=== PATIENT | female | born 1980 | race Caucasian/White ===

== ENCOUNTER 2018-10-17 10:40 | Observation (INO) ==
[2018-10-17] MEDS ORDERED: TYLENOL PO PRN (13:04)
[2018-10-17] MEDS ORDERED: SODIUM CHLORIDE 0.9% INJ SCH (13:30)
[2018-10-17 13:54] LABS: BASO# 0.02 X1000 (0.0-0.2); BASO% 0.2 % (0.0-0.8); EOS# 0.05 X1000 (0.0-0.7); EOS% 0.6 % (0.0-10.0); HEMATOCRIT 39.2 % (37.0-47.0); HEMOGLOBIN 13.3 g/dL (12.0-16.0); LYMPH# 2.29 X1000 (1.2-3.4); LYMPH% 27.6 % (20.5-51.1); MCHC 33.9 g/dL (33-37); MCV 88.5 FL (81-99); MONO# 0.43 X1000 (0.11-0.59); MONO% 5.2 % (1.7-9.3); MPV 8.7 FL (7.4-10.4); NEUT# 5.52 X1000 (1.4-6.5); NEUT% 66.4 % (42.2-75.2); PLT 415 X1000 (130-400); RBC 4.43 XMIL (4.2-5.4); RDW 12.3 % (11.5-14.5); WBC 8.31 X1000 (4.8-10.8)
[2018-10-17 13:59] LABS: INR 0.95; PROTIME 13.4 Seconds (11.0-16.0)
[2018-10-17 14:00] LABS: PTT 27.5 Seconds (22.3-41.8)
[2018-10-17 14:05] LABS: AGAP 13; ALB/GLOB RATIO 1.5; ALBUMIN 4.4 g/dL (3.5-5.0); ALKALINE PHOSPHATASE 166 U/L (32-104); BUN 8 mg/dL (8-22); CALCIUM 9.7 mg/dL (8.8-10.2); CHLORIDE 102 mmol/L (98-107); CK PROFILE 43 U/L (24-173); COSMO 273; CREATININE 0.8 mg/dL (0.5-0.9); ESTIMATED GFR > 60; GLUCOSE 81 mg/dL (70-104); GOT 29 U/L (10-30); GPT 61 U/L (10-36); HEMOGLOBIN A1C 5.4 % (4.8-6.0); POTASSIUM 3.9 mmol/L (3.5-5.1); SODIUM 138 mmol/L (136-145); TCO2 23 mmol/L (25-35); TOTAL BILIRUBIN 0.24 mg/dL (0.20-1.00); TOTAL PROTEIN 7.4 g/dL (6.3-8.3)
[2018-10-17 14:20] LABS: C REACTIVE PROT QUANT 25.45 mg/L (0.00-5.00)
[2018-10-17] MEDS: NEXIUM IV SCH (14:52)
[2018-10-17] MEDS: DILAUDID IV PRN ×2 (14:52→19:51)
[2018-10-17] MEDS: ZOFRAN IV PRN ×2 (14:53→19:51)
[2018-10-17] MEDS: NS 1,000 ML IV SCH (14:53)
[2018-10-17 17:10] LABS: URINE SOURCE CLEAN CATCH
[2018-10-17 17:12] LABS: BILIRUBIN URINE NEGATIVE (NEGATIVE); BLOOD URINE NEGATIVE (NEGATIVE); COLOR YELLOW; GLUCOSE URINE NEGATIVE (NEGATIVE); KETONE URINE NEGATIVE (NEGATIVE); LEUKOCYTES URINE NEGATIVE (NEGATIVE); NITRITE URINE NEGATIVE (NEGATIVE); PH URINE 6.5; PROTEIN URINE TRACE mg/dL (NEGATIVE); SP GRAVITY URINE 1.019; TURBIDITY URINE CLEAR (CLEAR); UR EPITHELIAL CELLS <10 /HPF (<10); URINE BACTERIA 1+ /HPF; URINE RBC <10 /HPF (<10); URINE WBC <10 /HPF (<10); UROBILINOGEN URINE NORMAL (NORMAL)
[2018-10-18] MEDS: ZOFRAN IV PRN ×5 (00:01→20:52)
[2018-10-18] MEDS: DILAUDID IV PRN ×5 (00:01→20:52)
[2018-10-18] MEDS: NS 1,000 ML IV SCH ×3 (00:30→20:53)
--- NOTE | 2018-10-18 01:09 | HISTORY AND PHYSICAL ---
CHIEF COMPLAINT: One week of nausea, vomiting, and persistent abdominal pain. HISTORY OF PRESENT ILLNESS: Ms. Carlson is a 38-year-old female with a history of migraines and depression, who was directly admitted from her primary care provider's office with a chief complaint of persistent abdominal pain as well as nausea and vomiting. The patient reports that last Saturday she started experiencing persistent nausea, vomiting, and abdominal pain. The patient saw her primary care provider last week and was diagnosed with a urinary tract infection and was given a prescription for ciprofloxacin 10 day supply as well as Pyridium. The patient took the antibiotics as prescribed, however, her abdominal pain continued. The patient then presented to her primary care physician today and was told that she needed to be directly admitted to the hospital for further workup for her persistent nausea, vomiting, and abdominal pain. The patient states that nothing like this has happened before. She denies having any blood in her stools or hematemesis. The patient describes the abdominal pain as constant. She rates it at a 10/10 when it is at its worst. She also reports that whenever she tries to eat or drink anything she ends up vomiting. She denies any fever, chills, or recent syncopal episodes. She also denies having any sick contacts. Nobody else in her household has been sick. PAST MEDICAL HISTORY: 1. Migraines. 2. Morbid obesity. 3. Depression. 4. Vitamin D deficiency. PAST SURGICAL HISTORY: 1. Partial hysterectomy. 2. Tubal ligation. 3. D and C. 4. Cholecystectomy. FAMILY HISTORY: The patient's mother had hypertension and rectal cancer. The patient's father had diabetes mellitus. The patient's paternal grandfather had pancreatic cancer. SOCIAL HISTORY: The patient denies any tobacco, alcohol or illicit drug use. ALLERGIES: 1. Sulfa drugs. 2. Flagyl. 3. Albuterol. 4. Tramadol. HOME MEDICATIONS: The patient's home medication list is currently unavailable. REVIEW OF SYSTEMS: A 12-point review of systems has been performed. Please refer to the history of present illness for pertinent positives and negatives. PHYSICAL EXAMINATION: VITAL SIGNS: Temperature 97.7 degrees, blood pressure 112/62, heart rate 96, respirations 14, O2 saturation 99% on room air. GENERAL: This is a morbidly obese female lying in bed in no acute distress. HEART: S1, S2 normal. Regular rate and rhythm. LUNGS: Equal air entry bilaterally. No crackles. No wheezing. No rales. ABDOMEN: Positive bowel sounds. Soft. Diffuse tenderness. EXTREMITIES: No edema. No cyanosis. No calf tenderness. NEUROLOGIC: The patient is alert and oriented x4. No focal neurologic deficits noted. Cranial nerves 2 through 12 intact. LABS: Hemoglobin 13, hematocrit 39, platelets 415,000, white blood cell count 8.3. Sodium 138, potassium 3.9, chloride 102, CO2 23, BUN 8, creatinine 0.8, glucose 81. ALT 61, AST 29, alkaline phosphatase 166. CRP 25. UA trace protein, 1+ bacteria. ASSESSMENT AND PLAN: 1. Abdominal pain with intractable nausea and vomiting. The patient had a CT of the abdomen and pelvis done on October 15, that was normal. We will start the patient on IV fluids, IV Protonix and consult GI. The patient may require further workup with endoscopy. 2. Morbid obesity. The patient has been counseled about weight loss and proper diet. 3. Deep vein thrombosis prophylaxis. Will start the patient on Lovenox. cc: Rowena Chapman MD MTDD
[2018-10-18] MEDS ORDERED: BENADRYL IV ONE (01:25)
[2018-10-18] MEDS ORDERED: PRILOSEC PO SCH (07:00)
[2018-10-18 07:38] LABS: HEMATOCRIT 36.4 % (37.0-47.0); HEMOGLOBIN 11.9 g/dL (12.0-16.0); MCHC 32.7 g/dL (33-37); MCV 91.7 FL (81-99); MPV 8.4 FL (7.4-10.4); RBC 3.97 XMIL (4.2-5.4); RDW 12.2 % (11.5-14.5); WBC 6.41 X1000 (4.8-10.8)
[2018-10-18 07:57] LABS: AGAP 11; BUN 6 mg/dL (8-22); CALCIUM 8.5 mg/dL (8.8-10.2); CHLORIDE 106 mmol/L (98-107); COSMO 274; CREATININE 0.7 mg/dL (0.5-0.9); ESTIMATED GFR > 60; GLUCOSE 73 mg/dL (70-104); POTASSIUM 3.7 mmol/L (3.5-5.1); SODIUM 139 mmol/L (136-145); TCO2 22 mmol/L (25-35)
[2018-10-18] MEDS: LOVENOX SUBQ SCH (08:20)
[2018-10-18] MEDS: BENADRYL IV PRN ×2 (12:02→22:51)
[2018-10-18] MEDS: NEXIUM IV SCH (15:09)
[2018-10-18 19:50] LABS: UR AMPHETAMINES QUAL NONE DETECTED (NONE DETECT); UR BARBITUATES QUAL NONE DETECTED (NONE DETECT); UR BENZODIAZEPIN QUAL NONE DETECTED (NONE DETECT); UR CANNABINOIDS QUAL NONE DETECTED (NONE DETECT); UR COCAINE QUAL NONE DETECTED (NONE DETECT); UR METHADONE QUAL NONE DETECTED (NONE DETECT); UR OPIATES QUAL NONE DETECTED (NONE DETECT); UR OXYCODONE QUAL NONE DETECTED (NONE DETECT); UR PCP QUAL NONE DETECTED (NONE DETECT)
[2018-10-18] MEDS: DESYREL PO SCH (20:52)
[2018-10-18] MEDS: SINGULAIR PO SCH (20:52)
--- NOTE | 2018-10-18 21:22 | PROGRESS NOTE ---
DATE: 10/18/2018 SUBJECTIVE: The patient continues to complain of nausea and abdominal pain. OBJECTIVE: Vital Signs: Temperature 97 degrees, blood pressure 106/50, heart rate 85, respirations 18, O2 saturation is 100% on room air. General: This is a morbidly obese female lying in bed in no acute distress. Heart: S1, S2 normal. Regular rate and rhythm. Lungs: Equal air entry bilaterally. No crackles. No rales. Abdomen: Positive bowel sounds. Soft, obese, nontender, nondistended. Extremities: No edema no cyanosis. Neurologic: The patient is alert and oriented x4. LABS: Hemoglobin 11, hematocrit 36, platelets 341,000. Sodium 139, potassium 3.7, BUN 6, creatinine 0.7, glucose 73. ASSESSMENT AND PLAN: 1. Abdominal pain. Continue on a full liquid diet. We will await further recommendations from GI. 2. Depression. We will restart the patient's fluoxetine. 3. Obesity. Aware. 4. Insomnia. Continue on trazodone. 5. Deep vein thrombosis prophylaxis. Continue on Lovenox. cc: Rowena Chapman MD
[2018-10-18] MEDS: PATIENT'S OWN MED PO SCH (23:45)
[2018-10-19] MEDS: DILAUDID IV PRN ×2 (01:34→08:24)
[2018-10-19] MEDS: ZOFRAN IV PRN ×4 (01:34→18:49)
[2018-10-19] MEDS: NS 1,000 ML IV SCH ×2 (05:17→16:16)
[2018-10-19 08:15] LABS: HEMATOCRIT 33.2 % (37.0-47.0); MCH 30.6 PG (27-31); MCHC 33.1 g/dL (33-37); MCV 92.2 FL (81-99); MPV 8.4 FL (7.4-10.4); RBC 3.6 XMIL (4.2-5.4); RDW 12.5 % (11.5-14.5); WBC 6.49 X1000 (4.8-10.8)
[2018-10-19] MEDS: TOPAMAX PO SCH (08:20)
[2018-10-19] MEDS: PROZAC PO SCH (08:20)
[2018-10-19] MEDS: LOVENOX SUBQ SCH (08:21)
[2018-10-19 08:38] LABS: AGAP 16; BUN 4 mg/dL (8-22); CALCIUM 8.5 mg/dL (8.8-10.2); CHLORIDE 109 mmol/L (98-107); COSMO 278; CREATININE 0.6 mg/dL (0.5-0.9); ESTIMATED GFR > 60; GLUCOSE 87 mg/dL (70-104); POTASSIUM 4.3 mmol/L (3.5-5.1); SODIUM 141 mmol/L (136-145); TCO2 16 mmol/L (25-35)
[2018-10-19] MEDS: BENADRYL IV PRN (10:02)
[2018-10-19] MEDS: MORPHINE IV PRN ×3 (12:45→22:57)
--- NOTE | 2018-10-19 15:20 | PROGRESS NOTE ---
DATE: 10/19/2018 SUBJECTIVE: The patient is resting comfortably. She complains of abdominal pain. OBJECTIVE: Vital Signs: Temperature 98.6, blood pressure 98/47, heart rate 75, respirations 16, O2 sats 100% on room air. General: This is a young female lying in bed in no acute distress. Heart: S1, S2 normal. Regular rate and rhythm. Lungs: Equal air entry bilaterally. No crackles. No rales. Abdomen: Positive bowel sounds. Soft, nontender, nondistended. Extremities: No edema, no cyanosis. Neurologic: The patient is alert and oriented x 3. LABS: Reviewed. ASSESSMENT AND PLAN: 1. Abdominal pain. Continue with the IV PPI and full liquid diet. Will await further recommendations from the clinical case manager. 2. Depression. Continue on fluoxetine. 3. Obesity. The patient has been counseled about weight loss. 4. Insomnia. Continue on trazodone. 5. DVT prophylaxis. Continue on Lovenox. cc: Rowena Chapman MD MTDD
[2018-10-19] MEDS: NEXIUM IV SCH (15:28)
[2018-10-19] MEDS: SINGULAIR PO SCH (20:09)
[2018-10-19] MEDS: DESYREL PO SCH (20:09)
[2018-10-19] MEDS: PATIENT'S OWN MED PO SCH (23:57)
[2018-10-20] MEDS: MORPHINE IV PRN ×5 (03:03→20:50)
[2018-10-20] MEDS: NS 1,000 ML IV SCH (03:23)
[2018-10-20 07:57] LABS: AGAP 10; BUN 3 mg/dL (8-22); CALCIUM 8.4 mg/dL (8.8-10.2); CHLORIDE 109 mmol/L (98-107); COSMO 279; CREATININE 0.7 mg/dL (0.5-0.9); ESTIMATED GFR > 60; GLUCOSE 83 mg/dL (70-104); POTASSIUM 3.8 mmol/L (3.5-5.1); SODIUM 142 mmol/L (136-145); TCO2 23 mmol/L (25-35)
[2018-10-20] MEDS: LOVENOX SUBQ SCH (08:17)
[2018-10-20] MEDS: PROZAC PO SCH (08:18)
[2018-10-20] MEDS: TOPAMAX PO SCH ×2 (08:18→21:09)
[2018-10-20] MEDS ORDERED: DIPRIVAN 1% ONE (09:55)
[2018-10-20] MEDS ORDERED: XYLOCAINE-MPF 2% ONE (09:56)
--- NOTE | 2018-10-20 10:55 | ENDOSCOPY OPERATIVE NOTE ---
[facility] ENDOSCOPY OPERATIVE NOTE , PATIENT: Brigitte Carlson ADMISSION DATE: MR#: [id number] : 1980 EGD PROCEDURE REPORT PROCEDURE DATE: 10/20/2018 SURGEON: Iglesia Diamond MD STATUS: inpatient SECURITY ROVER: Pratibha Villarreal PREOPERATIVE DIAGNOSIS: The patient is a 38 yr old female here for an EGD due to epigastric abdomina l pain, vomiting, and anemia. PROCEDURE PERFORMED: EGD w/ biopsy MEDICATIONS: Per Anesthesia TOPICAL ANESTHETIC: none CONSENT: The patient understands the risks and benefits of the procedure and understands that these r isks include, but are not limited to: sedation, allergic reaction, infection, perforation and/or bleeding. Alternative means of evaluation and treatment include, among others: physical exam, x-rays, and/or surgical intervention. The patient elects to proceed with this endoscopic procedure. HISORY AND PHYSICAL: 10/20/2018 function. Hand hygiene and appropriate measures for infection prevention was taken. After the risks, benefits and alternatives of the procedure were thoroughly explained, Informed consent was verified, confirmed and timeout was successfully executed by the treatment team. The patient was anesthetized with topical anesthesia and the endoscope was introduced through the mouth and advanced to the second portion of the duodenum. Retroflexion wa s performed in the stomach and revealed no abnormalities. The gastroscope was then slowly withdrawn and removed. STOMACH: Mild erosive gastritis (inflammation) was found in the gastric antrum. A biopsy was perform ed using cold forceps. Sample sent for histology. Bile was noted in the stomach Body. DUODENUM: The duodenal mucosa showed no abnormalities in the duodenal bulb, 2nd part duodenum, and 1s t part duodenum. ESOPHAGUS: The mucosa of the esophagus appeared normal. SPECIMENS REMOVED: Yes ADVERSE EVENTS: There were no complications. POSTOPERATIVE DIAGNOSIS: 1. The Esophagus was normal 2. Erosive gastritis (inflammation) was found in the gastric antrum; biopsy was performed 3. Bile was noted in the stomach Body 4. The duodenal mucosa showed no abnormalities in the duodenal bulb, 2nd part duodenum, and 1st part duodenum RECOMMENDATIONS: 1. Await biopsy results 2. Dara follow up in 4 weeks. Start PPI once daily for 3 months; Avoid NSAIDs including Ibuprofen. Start Miralax 17g QD for constipation REPEAT EXAM: Iglesia Diamond MD eSigned: Iglesia Diamond MD 10/20/2018 10:55 AM cc: PATIENT NAME: Brigitte Carlson MR#: [id number]
[2018-10-20] MEDS: MIRALAX PO SCH (11:42)
--- NOTE | 2018-10-20 16:27 | PROGRESS NOTE ---
DATE: 10/20/2018 SUBJECTIVE: The patient just returned from endoscopy. She states that she has a little bit of abdominal pain. OBJECTIVE: Vital Signs: Temperature 97.9 degrees, blood pressure 115/66, heart rate 85, respirations 18, O2 saturation is 100% on room air. General: This is a morbidly obese female sitting up in bed in no acute distress. Heart: S1, S2 normal. Regular rate and rhythm. Lungs: Equal air entry bilaterally. No wheezing. No rales. No rhonchi. Abdomen: Positive bowel sounds. Soft, nontender, nondistended. Extremities: No edema, no cyanosis. Neurologic: The patient is alert and oriented x3. LABORATORY DATA: Reviewed. ASSESSMENT AND PLAN: 1. Erosive gastritis. Continue on omeprazole. We will monitor the patient tonight. She should be stable for discharge home tomorrow. 2. Morbid obesity. Aware. 3. Insomnia. Continue on trazodone. 4. Deep vein thrombosis prophylaxis. Continue on Lovenox. cc: Rowena Chapman MD
[2018-10-20] MEDS: ZOFRAN IV PRN ×2 (16:30→20:50)
[2018-10-20] MEDS: CULTURELLE PO SCH (20:50)
[2018-10-20] MEDS: DESYREL PO SCH (20:50)
[2018-10-20] MEDS: SINGULAIR PO SCH (20:50)
[2018-10-20] MEDS: PATIENT'S OWN MED PO SCH (20:51)
[2018-10-20] MEDS: BENADRYL IV PRN (23:55)
[2018-10-21] MEDS: ZOFRAN IV PRN ×3 (01:31→09:19)
[2018-10-21] MEDS: MORPHINE IV PRN ×3 (01:31→09:19)
[2018-10-21] MEDS ORDERED: PRILOSEC PO SCH (07:00)
[2018-10-21 07:41] VITALS: BP 98/47
[2018-10-21 08:46] LABS: AGAP 9; BUN 5 mg/dL (8-22); CALCIUM 8.8 mg/dL (8.8-10.2); CHLORIDE 105 mmol/L (98-107); COSMO 275; CREATININE 0.6 mg/dL (0.5-0.9); ESTIMATED GFR > 60; GLUCOSE 101 mg/dL (70-104); POTASSIUM 3.4 mmol/L (3.5-5.1); SODIUM 139 mmol/L (136-145); TCO2 25 mmol/L (25-35)
[2018-10-21] MEDS ORDERED: TOPAMAX PO SCH (09:00)
[2018-10-21] MEDS: MIRALAX PO SCH ×2 (09:14→09:24)
[2018-10-21] MEDS: CULTURELLE PO SCH (09:14)
[2018-10-21] MEDS: PROZAC PO SCH (09:14)
[2018-10-21] MEDS: TOPAMAX PO SCH (09:14)
[2018-10-21] MEDS: LOVENOX SUBQ SCH (09:14)
--- NOTE | 2018-10-21 14:22 | DISCHARGE SUMMARY ---
ADMISSION DATE: 10/17/2018 DISCHARGE DATE: 10/21/2018 PRIMARY CARE: Her doctor is IVETTE Mckenzie. The patient came in with one-week history of nausea, vomiting, persistent abdominal pain. A 38- year-old female with history of migraines, depression, directly admitted by her primary care. Chief complaint was persistent abdominal pain as well as nausea, vomiting. Reports that Saturday she started experiencing nausea, vomiting, abdominal pain, and she was given a prescription for ciprofloxacin 10 day supply and Pyridium. The patient took antibiotics as prescribed. However, the abdominal pain continued. She then presented to her primary care physician who told her she needed to be directly admitted to the hospital, so was sent over here. PAST MEDICAL HISTORY: 1. Migraine headaches. 2. Morbid obesity. 3. Depression. 4. Vitamin D deficiency. PAST SURGICAL HISTORY: 1. Partial hysterectomy. 2. Tubal ligation. 3. D and C. 4. Cholecystectomy. So, admitted with abdominal pain and intractable nausea, vomiting. CT of the abdomen and pelvis done on October 15 was normal. The patient given some IV fluids, IV Protonix. GI was consulted. Dr. Diamond evaluated her, underwent EGD. She had mild erosive gastritis found in the gastric antrum. Biopsies performed using forceps and sent off to look for H. Pylori. Duodenal mucosa showed no abnormalities in the duodenal bulb, 2nd part of the duodenum and first part of the duodenum. So felt like she had some erosive gastritis. The patient has felt better, wants to go home today. This is the . We will continue her omeprazole. FOLLOW UP: Dr. Diamond. Follow up with her primary care. DISCHARGE MEDICATIONS: She will go back on her vitamin D3 as before. She will stop her Cipro, be back on fluoxetine 40 mg daily. She takes hydroxyzine 25 mg p.o. q. 8 hours. Encourage her to stop the ibuprofen and she can take her Singulair 10 mg at bedtime as needed. She can continue her control tablets as before. She is on topiramate 50 mg b.i.d. and trazodone 50 mg at bedtime. We will give her a prescription for a proton pump inhibitor. She was put on some Culturelle which she will take once a day to twice a day and we will give her Prilosec 40 mg p.o. daily. She was also put on MiraLAX 17 g a day, which will continue. cc: Beny Morgan MD
--- NOTE | 2018-10-21 17:42 | PROVIDER PROGRESS NOTE ---
Progress Note S: No acute overnight events. Patient reports mild nausea without vomiting controlled with zofran. She is tolerating solid diet. She reports sharp diffuse abdominal pain that is mild. She says she has tried levsin and bentyl in the past for history of IBS. No fever, CP, SOB. O: Last Vital Signs Temp 97.5 F L 10/21/18 07:32 Pulse 67 10/21/18 07:32 Resp 16 10/21/18 07:32 BP 98/47 10/21/18 07:32 Pulse Ox 99 10/21/18 04:00 Height 5 ft Weight 187 lb 9 oz GEN: awake, alert, NAD HEENT: anicteric, MMM NECK: supple, no jvd CV: RRR, no murmurs PULM: CTAB, no wheezing ABD: obese, mild TTP throughout, no rebound or guarding, BS present EXT: no cce NEURO: nonfocal LABS: 10/21/18 07:45 Sodium 139 Potassium 3.4 L Chloride 105 Carbon Dioxide 25 BUN 5 L D Creatinine 0.6 EGD 10/20/2018 1. The Esophagus was normal 2. Erosive gastritis (inflammation) was found in the gastric antrum; biopsy was performed 3. Bile was noted in the stomach Body 4. The duodenal mucosa showed no abnormalities in the duodenal bulb, 2nd part duodenum, and 1st part duodenum A/P: Ms. Brigitte Carlson is a 38 year woman with history of IBS and prior CCY who presented with N/V, abdominal pain, and anemia. EGD yesterday revealed gastritis (biopsied); otherwise normal exam. CT A/P on 10/15 was unrevealing for etiology of abdominal pain. LFTs WNL. She is tolerating diet today and nausea is controlled with zofran. She reports some mild abdominal tenderness throughout. # N/V: improved; continue PPI, avoid NSAIDs, zofran prn # Abdominal pain: appears functional in etiology # Anemia: noted; no overt bleeding; no recent iron studies/vitamin B12/folate checked; recommend checking as outpatient Will sign off. Please should follow-up in clinic in 2-4 weeks.
== END 2018-10-21 14:57 | disposition home or self-care (01) ==
LOC: DIRADM 10:40 → SUATTDRO 10:40 → INTOOBSV 10:40 → 3N 11:16
PROVIDERS: ATTEND Emergency Medicine
CPT/HCPCS: 80048; 80053; 80101; 80301; 80307; 80324; 80345; 80346; 80353; 80358; 80361; 80365; 81001; 82550; 83036; 83690; 83992; 84443; 84484; 85025; 85027; 85610; 85651; 85730; 86140; 87040; 88305; 88312; 94761; 96372; 96374; 96375; 96376; A9270; G0378; G0379; G0431; G0434; G0479; G0480; J1170; J1200; J1650; J2270; J2405; J7030